=== PATIENT | male | born 1970 | race Caucasian/White ===

== ENCOUNTER 2020-06-27 15:40 | Inpatient (IN) | payer BC ==
[2020-06-27 16:34] LABS: #Eosinphils 0.1 10x3/uL (0.0-0.5); #Monocytes 0.8 10x3/uL (0.0-1.1); #Neutrophils 3.3 10x3/uL (1.5-8.4); %Basophils 0.2 % (0.0-2.0); %Eosinophils 1.5 % (0.0-6.0); %Lymphocytes 20.4 % (18.0-47.0); %Monocytes 14.9 % (0.0-10.0); %Neutrophils 62.6 % (40.0-75.0); Mean Corpuscular HGB CONC 28.2 g/dL (32.0-36.0); Mean Corpuscular Hemoglobin 22.1 pg (27.0-33.0); Mean Corpuscular Volume 78.5 fl (81.2-95.1); Mean Platelet Volume 10.9 fl (7.4-10.4); Platelet Count 319 10x3/uL (150-450); RBC Distribution Width 21.6 % (11.5-14.5); Red Blood Cell (RBC) Count 1.81 10x6/uL (4.32-5.72); White Blood Cell (WBC) Count 5.3 10x3/uL (3.5-10.5)
[2020-06-27 16:41] LABS: ALT (SGPT) 17 U/L (8-55); AST (SGOT) 14 U/L (5-34); Alkaline Phosphatase 115 U/L (40-110); Anion Gap 13 mmol/L (10-20); BUN (Urea Nitrogen) 15 mg/dL (8.9-20.6); Bilirubin, Total 0.3 mg/dL (0.2-1.2); Calc. Creatinine Clearance 0 mL/min (70-130); Calcium 8.4 mg/dL (7.8-10.44); Carbon Dioxide 22 mmol/L (22-29); Chloride 107 mmol/L (98-107); Globulin 1.9 g/dL (2.4-3.5); Glucose 74 mg/dL (70-105); Potassium 3.8 mmol/L (3.5-5.1); Protein, Total 5.9 g/dL (6.0-8.3); Sodium 138 mmol/L (136-145)
[2020-06-27 16:50] LABS: INR-International Normal Ratio 1.1; PTT 22.2 sec (22.0-33.0); Prothrombin Time 11.8 sec (9.5-12.1)
[2020-06-27 16:58] LABS: Anisocytosis SLIGHT = 6-15 cells (100X) (0-5/hpf); Hypochromia MODERATE=16-30 cells (100X) (0-5/hpf)
[2020-06-27 17:00] LABS: Platelet Morphology Comment Appears Adequate; Stomatocytes SLIGHT = 2-5 cells (100X) (0-1/hpf)
[2020-06-27 17:02] LABS: Ovalocytes SLIGHT = 2-5 cells (100X) (0-1/hpf)
[2020-06-27 17:03] LABS: Microcytosis SLIGHT = 6-15 cells (100X) (0-5/hpf); Polychromasia SLIGHT = 2-3 cells (100X) (0-2/hpf)
[2020-06-27 18:00] LABS: Iron 6 ug/dL (65-175); Iron Binding Capacity, Total 368 mcg/dL (261-462); Transferrin, Serum 294 mg/dL (174-364)
[2020-06-27 19:06] VITALS: BMI 32.8
[2020-06-27] MEDS ORDERED: Senokot S 8.6-50 MG TAB PO PRN (21:05)
[2020-06-27] MEDS ORDERED: Acetaminophen 325 MG TAB PO PRN (21:05)
[2020-06-27] MEDS ORDERED: Ondansetron PF 4 MG/2 ML Vial IVP PRN (21:05)
[2020-06-27] MEDS ORDERED: Calcium Carbonate 500 MG ChewTAB PO PRN (21:05)
[2020-06-27] MEDS ORDERED: HYDROcodone/Acetaminophen 5/325 mg Tablet PO PRN (21:05)
[2020-06-27] MEDS ORDERED: Zolpidem Tartrate 5 MG TAB PO PRN (21:05)
[2020-06-27] MEDS ORDERED: Pantoprazole 40 MG VIAL IVP SCH (21:15)
[2020-06-28 05:46] LABS: Anion Gap 12 mmol/L (10-20); BUN (Urea Nitrogen) 12 mg/dL (8.9-20.6); Calc. Creatinine Clearance 175 mL/min (70-130); Calcium 8.1 mg/dL (7.8-10.44); Carbon Dioxide 22 mmol/L (22-29); Chloride 109 mmol/L (98-107); Glucose 91 mg/dL (70-105); Potassium 3.4 mmol/L (3.5-5.1); Sodium 140 mmol/L (136-145)
[2020-06-28] MEDS ORDERED: Potassium Chloride 20 MEQ TAB PO SCH (06:00)
[2020-06-28 08:23] LABS: #Eosinphils 0.2 10x3/uL (0.0-0.5); #Monocytes 0.8 10x3/uL (0.0-1.1); #Neutrophils 3.1 10x3/uL (1.5-8.4); %Basophils 0.6 % (0.0-2.0); %Eosinophils 3.5 % (0.0-6.0); %Lymphocytes 25.9 % (18.0-47.0); %Monocytes 13.8 % (0.0-10.0); %Neutrophils 55.8 % (40.0-75.0); Hemoglobin 6.9 g/dL (13.5-17.5); Mean Corpuscular HGB CONC 30.4 g/dL (32.0-36.0); Mean Corpuscular Hemoglobin 24.8 pg (27.0-33.0); Mean Corpuscular Volume 81.7 fl (81.2-95.1); Mean Platelet Volume 11.3 fl (7.4-10.4); Platelet Count 307 10x3/uL (150-450); RBC Distribution Width 19.9 % (11.5-14.5); Red Blood Cell (RBC) Count 2.78 10x6/uL (4.32-5.72); White Blood Cell (WBC) Count 5.5 10x3/uL (3.5-10.5)
[2020-06-28] MEDS ORDERED: Amlodipine 5 MG TAB PO SCH (09:00)
[2020-06-28] MEDS ORDERED: Pantoprazole 40 MG VIAL IVP SCH (09:00)
[2020-06-28 15:50] LABS: SARS-CoV-2 PCR by NAA Not Detected (NotDetected)
[2020-06-28 15:51] VITALS: BP 129/67; TEMP 98.6
[2020-06-28] MEDS ORDERED: GoLYTELY 4,000 ml Bottle PO SCH (16:00)
== END 2020-06-28 18:15 | disposition left against medical advice (07) | DRG 812 ==
LOC: CSHERS 15:40 → CSHTELE 18:26
PROVIDERS: ADMIT Internal Medicine; ATTEND Emergency Medicine
PROC: 30233N1 Transfusion of Nonautologous Red Blood Cells into Peripheral Vein, Percutaneous Approach (ICD-10-PCS; principal; 2020-06-27)
DX: D50.9 Iron deficiency anemia, unspecified (principal); F17.220 Nicotine dependence, chewing tobacco, uncomplicated; Z20.822 Contact with and (suspected) exposure to COVID-19; F90.9 Attention-deficit hyperactivity disorder, unspecified type; D62 Acute posthemorrhagic anemia; I10 Essential (primary) hypertension; Z90.89 Acquired absence of other organs; Z90.49 Acquired absence of other specified parts of digestive tract; Z98.84 Bariatric surgery status; Z87.11 Personal history of peptic ulcer disease; Z83.3 Family history of diabetes mellitus; Z80.8 Family history of malignant neoplasm of other organs or systems
CPT/HCPCS: 36430; 80048; 82274; 82607; 82728; 82746; 83010; 83540; 83550; 84466; 84484; 85025; 85046; 85610; 85730; 86850; 86900; 86901; 86922; 87635; 93005; C9113; P9016; U0003; U0005

== ENCOUNTER 2021-06-11 09:09 | Outpatient (CLI) | payer BC | END 2021-06-11 09:10 | disposition home or self-care (01) | LOC: CSHRAD 09:09 | PROVIDERS: ATTEND Family Medicine | DX: M79.5 Residual foreign body in soft tissue (principal); M79.9 Soft tissue disorder, unspecified; M47.816 Spondylosis without myelopathy or radiculopathy, lumbar region | CPT/HCPCS: 72190 ==

== ENCOUNTER 2025-02-15 07:15 | Outpatient (CLI) | payer BC | END 2025-02-15 07:16 | disposition home or self-care (01) | LOC: CSHCT 07:15 | PROVIDERS: ATTEND Physician Assistant Medical | DX: R10.13 Epigastric pain (principal); R11.2 Nausea with vomiting, unspecified; R19.4 Change in bowel habit; Z98.84 Bariatric surgery status; K56.1 Intussusception; Z98.890 Other specified postprocedural states; J90 Pleural effusion, not elsewhere classified | CPT/HCPCS: 74177 ==